=== PATIENT | female | born 1990 | race African-American/Black ===

== ENCOUNTER 2017-09-23 18:15 | Emergency (ER) | payer MEDICAID ==
[~2017-09-23] VITALS: Ht 175.3 cm; Wt 84.0 kg
[~2017-09-23 18:15] MED LIST: MACRODANTIN100 MG OR; PRENATA4 OR; PROVENTIL INH17 GM IN; REGLAN5 MG OR; ZOFRAN ODT4 MG PO
[2017-09-23] MEDS ORDERED: XANAX0.25 MG PO (20:01)
[2017-09-23] MEDS ORDERED: ZOLOFT50 MG PO (20:02)
[2017-09-23 20:20] LABS: INFLUENZA A NONE DETECTED (NONE DETECT); INFLUENZA B NONE DETECTED (NONE DETECT)
[2017-09-23] MEDS ORDERED: AMOXICILLIN500 MG PO (20:36)
[2017-09-23 21:08] VITALS: BP 124/80
== END 2017-09-23 21:09 | disposition home or self-care (01) | DRG 153 ==
LOC: ED 18:15
PROVIDERS: Emergency Medicine
DX: J02.0 Streptococcal pharyngitis (principal); R05 Cough; R51 Headache; R50.9 Fever, unspecified

== ENCOUNTER 2017-10-14 08:36 | Emergency (ER) | payer MEDICAID ==
[~2017-10-14] VITALS: Ht 175.3 cm; Wt 84.0 kg
[~2017-10-14 08:36] MED LIST changes: +AMOXICILLIN500 MG PO; +XANAX0.25 MG PO; +ZOLOFT50 MG PO
[2017-10-14 09:38] LABS: HEMATOCRIT 40.5 % (37.0-47.0); IMMATURE GRANULOCYTES 0.2 % (0.0-1.0); MEAN CELL VOLUME 93.8 fL CALC (80.0-100.0); MEAN CORPUSCULAR HGB 30.1 pG CALC (26.0-32.0); MEAN CORPUSCULAR HGB CONC 32.1 g/L CALC (32.0-36.0); NEUT# 2.44 thou/uL (2.00-7.15); RED BLOOD COUNT 4.32 mill/uL (4.20-5.60)
[2017-10-14 09:41] LABS: URINE BILIRUBIN - DIPSTICK NEGATIVE (NEGATIVE); URINE BLOOD DIPSTICK NEGATIVE (NEGATIVE); URINE COLOR YELLOW; URINE GLUCOSE - DIPSTICK NEGATIVE (NEGATIVE); URINE KETONE NEGATIVE (NEGATIVE); URINE NITRITE - DIPSTICK NEGATIVE (Negative); URINE PROTEIN - DIPSTICK NEGATIVE (NEG-TRACE); URINE SPECIFIC GRAVITY 1.025; URINE UROBILINOGEN - DIPSTICK 0.2 E.U./dL (0.2)
[2017-10-14 09:48] LABS: URINE BACTERIA MODERATE hpf; URINE CLARITY CLOUDY; URINE EPITHELIAL CELLS MANY EPI/hpf (0-FEW); URINE LEUK ESTERASE MODERATE (NEGATIVE); URINE RBC 0-2 RBC/hpf (0-5)
[2017-10-14 10:02] LABS: ALBUMIN 3.9 g/dL (3.2-5.0); ALKALINE PHOSPHATASE 38 u/l (38-126); ANION GAP 15 (6-22 (CALC)); BILIRUBIN, TOTAL 0.7 mg/dL (0.0-1.4); BUN 12 mg/dL (7-17); BUN/CREATININE RATIO 15 (12-20 (CALC)); CARBON DIOXIDE 23 mmol/l (22-30); CHLORIDE 109 mmol/l (95-108); CREATININE 0.8 mg/dL (0.5-1.0); GFR > 60 ML/MIN (>=60 (CALC)); GFR FOR AFR.AMER. > 60 ML/MIN (>=60 (CALC)); LIPASE 65 u/l (23-300); POTASSIUM 4.7 mmol/l (3.5-5.1); SGOT/AST 24 u/l (14-36); SGPT/ALT 21 u/l (9-52); SODIUM 143 mmol/l (137-146); TOTAL PROTEIN 7.7 g/dL (6.3-8.2)
[2017-10-14] MEDS ORDERED: KEFLEX500 MG PO (10:28)
[2017-10-14] MEDS ORDERED: ZOFRAN ODT4 MG PO (10:28)
[2017-10-14] MEDS ORDERED: NEXIUM40 M1 PO (10:32)
[2017-10-14] MEDS ORDERED: VENTOLIN HFA IN (10:34)
[2017-10-14] MEDS ORDERED: PULMICORT90 MCG/ACT IN (10:34)
[2017-10-14 10:45] VITALS: BP 104/69
== END 2017-10-14 10:45 | disposition home or self-care (01) | DRG 690 ==
LOC: ED 08:36
PROVIDERS: Emergency Medicine
DX: N39.0 Urinary tract infection, site not specified (principal); R10.32 Left lower quadrant pain; R11.2 Nausea with vomiting, unspecified

== ENCOUNTER 2018-07-07 18:12 | Emergency (ER) | payer OTHER ==
[~2018-07-07] VITALS: Ht 175.3 cm; Wt 79.5 kg
[~2018-07-07 18:12] MED LIST changes: +KEFLEX500 MG PO; +NEXIUM40 M1 PO; +PULMICORT90 MCG/ACT IN; +VENTOLIN HFA IN
[2018-07-07 20:10] LABS: URINE BILIRUBIN - DIPSTICK NEGATIVE (NEGATIVE); URINE BLOOD DIPSTICK NEGATIVE (NEGATIVE); URINE COLOR YELLOW; URINE GLUCOSE - DIPSTICK NEGATIVE (NEGATIVE); URINE KETONE NEGATIVE (NEGATIVE); URINE LEUK ESTERASE NEGATIVE (NEGATIVE); URINE NITRITE - DIPSTICK NEGATIVE (Negative); URINE PH 7.5 (4.5-8.0); URINE PROTEIN - DIPSTICK NEGATIVE (NEG-TRACE)
[2018-07-07 20:17] LABS: URINE CLARITY SL CLOUDY
[2018-07-07 20:20] LABS: HEMATOCRIT 35.9 % (37.0-47.0); HEMOGLOBIN 11.7 g/dl (12.0-16.0); IMMATURE GRANULOCYTES 0.2 % (0.0-5.0); MEAN CELL VOLUME 95.5 fL CALC (80.0-100.0); MEAN CORPUSCULAR HGB 31.1 pG CALC (26.0-32.0); MEAN CORPUSCULAR HGB CONC 32.6 g/L CALC (32.0-36.0); NEUT# 2.32 thou/uL (2.00-7.15); RED BLOOD COUNT 3.76 mill/uL (4.20-5.60); RED CELL DISTRI WIDTH 13.5 % (11.5-15.5)
[2018-07-07 20:45] LABS: ALBUMIN 3.9 g/dL (3.2-5.0); ALKALINE PHOSPHATASE 40 u/l (38-126); AMYLASE 95 u/l (30-110); ANION GAP 11 (6-22 (CALC)); BILIRUBIN, TOTAL 0.2 mg/dL (0.0-1.4); BUN 9 mg/dL (7-17); BUN/CREATININE RATIO 10 (12-20 (CALC)); CARBON DIOXIDE 25 mmol/l (22-30); CHLORIDE 108 mmol/l (95-108); CREATININE 0.9 mg/dL (0.5-1.0); GFR > 60 ML/MIN (>=60 (CALC)); GFR FOR AFR.AMER. > 60 ML/MIN (>=60 (CALC)); LIPASE 108 u/l (23-300); POTASSIUM 4.2 mmol/l (3.5-5.1); SGOT/AST 19 u/l (14-36); SODIUM 139 mmol/l (137-146); TOTAL PROTEIN 7.6 g/dL (6.3-8.2)
[2018-07-07 20:52] LABS: INFLUENZA A NONE DETECTED (NONE DETECT); INFLUENZA B NONE DETECTED (NONE DETECT)
[2018-07-07] MEDS ORDERED: CEPHALEXIN500 M1 PO (20:59)
[2018-07-07 21:15] VITALS: BP 108/68
== END 2018-07-07 21:22 | disposition home or self-care (01) ==
LOC: ED 18:12
PROVIDERS: Emergency Medicine
DX: J06.9 Acute upper respiratory infection, unspecified (principal); R50.9 Fever, unspecified; R11.2 Nausea with vomiting, unspecified; R19.7 Diarrhea, unspecified; R10.9 Unspecified abdominal pain

== ENCOUNTER 2018-07-16 13:51 | Emergency (ER) | payer OTHER ==
[~2018-07-16] VITALS: Ht 175.3 cm; Wt 80.0 kg
[~2018-07-16 13:51] MED LIST changes: +CEPHALEXIN500 M1 PO
[2018-07-16 15:01] LABS: HEMATOCRIT 38.6 % (37.0-47.0); HEMOGLOBIN 12.4 g/dl (12.0-16.0); IMMATURE GRANULOCYTES 0.2 % (0.0-5.0); MEAN CORPUSCULAR HGB 30.8 pG CALC (26.0-32.0); MEAN CORPUSCULAR HGB CONC 32.1 g/L CALC (32.0-36.0); NEUT# 2.78 thou/uL (2.00-7.15); RED BLOOD COUNT 4.02 mill/uL (4.20-5.60); RED CELL DISTRI WIDTH 13.4 % (11.5-15.5)
[2018-07-16 15:27] LABS: ALBUMIN 3.8 g/dL (3.2-5.0); ALKALINE PHOSPHATASE 36 u/l (38-126); ANION GAP 12 (6-22 (CALC)); BILIRUBIN, TOTAL 0.7 mg/dL (0.0-1.4); BUN 8 mg/dL (7-17); BUN/CREATININE RATIO 10 (12-20 (CALC)); CARBON DIOXIDE 26 mmol/l (22-30); CHLORIDE 109 mmol/l (95-108); CREATININE 0.8 mg/dL (0.5-1.0); GFR > 60 ML/MIN (>=60 (CALC)); GFR FOR AFR.AMER. > 60 ML/MIN (>=60 (CALC)); POTASSIUM 4.3 mmol/l (3.5-5.1); SGOT/AST 22 u/l (14-36); SODIUM 143 mmol/l (137-146); TOTAL PROTEIN 7.7 g/dL (6.3-8.2)
[2018-07-16 15:44] LABS: URINE BLOOD DIPSTICK SMALL (NEGATIVE); URINE COLOR YELLOW; URINE GLUCOSE - DIPSTICK NEGATIVE (NEGATIVE); URINE KETONE 40 mg/dL (NEGATIVE); URINE LEUK ESTERASE SMALL (NEGATIVE); URINE NITRITE - DIPSTICK NEGATIVE (Negative); URINE PROTEIN - DIPSTICK NEGATIVE (NEG-TRACE); URINE SPECIFIC GRAVITY 1.025
[2018-07-16 15:45] LABS: URINE BILIRUBIN - DIPSTICK NEGATIVE (NEGATIVE); URINE CLARITY HAZY
[2018-07-16 15:47] LABS: BARBITURATES NEGATIVE (NEGATIVE); COCAINE NEGATIVE (NEGATIVE); METHADONE NEGATIVE (NEGATIVE); OXCYCODONE NEGATIVE (NEGATIVE); TETRAHYDROCANNABIONOL NEGATIVE (NEGATIVE); TRICYLIC ANTIDEPRESSANTS NEGATIVE (NEGATIVE)
[2018-07-16 15:52] LABS: URINE RBC 0-2 RBC/hpf (0-5); URINE SQUAMOUS EPITHELIAL CELL FEW EPI/hpf (0-FEW)
[2018-07-16] MEDS ORDERED: PROTONIX40 M2 PO ×2 (17:07→17:26)
[2018-07-16] MEDS ORDERED: TORADOL PO ×2 (17:07→17:26)
[2018-07-16] MEDS ORDERED: KEFLEX500 M1 PO ×2 (17:07→17:26)
[2018-07-16 17:23] VITALS: BP 115/75
== END 2018-07-16 17:27 | disposition home or self-care (01) ==
LOC: ED 13:51
PROVIDERS: Emergency Medicine
DX: N39.0 Urinary tract infection, site not specified (principal); F41.9 Anxiety disorder, unspecified; J45.909 Unspecified asthma, uncomplicated; R10.11 Right upper quadrant pain; K92.0 Hematemesis

== ENCOUNTER 2018-08-09 19:33 | Emergency (ER) | payer OTHER ==
[~2018-08-09] VITALS: Ht 175.3 cm; Wt 81.0 kg
[~2018-08-09 19:33] MED LIST changes: +KEFLEX500 M1 PO; +PROTONIX40 M2 PO; +TORADOL PO
[2018-08-09] MEDS ORDERED: MOTRIN800 MG PO (21:16)
[2018-08-09 21:20] VITALS: BP 104/72
== END 2018-08-09 21:20 | disposition home or self-care (01) ==
LOC: ED 19:33
DX: S69.92XA Unspecified injury of left wrist, hand and finger(s), initial encounter (principal); M25.442 Effusion, left hand; W22.03XA Walked into furniture, initial encounter; Y93.E9 Activity, other interior property and clothing maintenance; Y92.003 Bedroom of unspecified non-institutional (private) residence as the place of occurrence of the external cause

== ENCOUNTER 2018-09-27 13:19 | Emergency (ER) | payer OTHER ==
[~2018-09-27 13:19] MED LIST changes: +MOTRIN800 MG PO
== END 2018-09-27 13:30 | disposition left against medical advice (07) | DRG 951 ==
LOC: ED 13:19 → LWOBS 13:30
DX: Z91.19 Patient's noncompliance with other medical treatment and regimen (principal)

== ENCOUNTER 2018-12-16 21:47 | Emergency (ER) | payer OTHER ==
[~2018-12-16] VITALS: Ht 175.3 cm; Wt 82.7 kg
[2018-12-17] VITALS: BP 110/62
== END 2018-12-17 00:03 | disposition home or self-care (01) ==
LOC: ED 21:47
DX: R19.7 Diarrhea, unspecified (principal)

== ENCOUNTER 2019-02-08 16:40 | Emergency (ER) | payer OTHER ==
[~2019-02-08] VITALS: Ht 152.4 cm; Wt 85.0 kg
[2019-02-08] MEDS ORDERED: FLEXERIL PO (18:56)
[2019-02-08] MEDS ORDERED: LORTAB 1010 MG PO (18:56)
[2019-02-08 19:11] VITALS: BP 108/89
== END 2019-02-08 19:19 | disposition home or self-care (01) | DRG 538 ==
LOC: ED 16:40
DX: S73.101A Unspecified sprain of right hip, initial encounter (principal); V49.50XA Passenger injured in collision with unspecified motor vehicles in traffic accident, initial encounter